=== PATIENT | female | born 1970 | race Caucasian/White ===

== ENCOUNTER 2023-03-24 16:29 | Observation (INO) | payer BC, SELFPAY ==
[2023-03-24 17:40] VITALS: BP 158/102; PULSE 56; RESP 16; TEMP 37; O2SAT 97
--- NOTE | 2023-03-24 18:55 | PC.NURSE ---
Patient arrived to floor via stretcher at 18:55.
[2023-03-24 19:14] VITALS: BP 161/104; RESP 18; TEMP 36.6; O2SAT 95; BMI 30.7
--- NOTE | 2023-03-24 19:46 | EXP.HP ---
History of Present Illness *Admission Date: 03/24/23 *Reason for visit:: Chest pain *History of present illness: 52 year old female presented to [facility] ED for c/o CP that has been occurring for 2 weeks. Pt arrived to [facility] at shift change. Pt is poor historian and is difficult to obtain PMHX due to her agitation and c/o migraine. [facility] chart reveals PMHX of HTN, HLD, Migraines, anxiety, hypothyroidism, suboxone use, and depression. Pt denies any prior hx of cardiac events. Pt reports smoking 1/2 pack daily. Her EKG at [facility] revealed T wave inversions in leads 2, 3, AVF, and 3 through V6. Her BP was systolic of 180. She was given clondine, two subling nitro tablets, and nitro paste. She has since removed the nitro paste. She was also given ASA, Brilinta, and Lovenox. Dr. Rico at [place] spoke with Dr. Young and Dr. Trejo for transfer to [facility]. I admitted the pt to the medical floor. She will receive a cardiac consult in the morning and remain on cardiac monitoring. I have ordered a cardiac workup including EKG and troponins. Pt denies any CP but reports headache. She states her chest pain is associated with being hypertensive. Her ED work up revealed an elevated AST and alk phosphate. All other lab values are WNL. Her troponins were 9 -> 7 on a scale of 0-51. Her chest xray demonstrated no cardiopulmonary process. [facility] Disclaimer: The information contained in this section may have been updated after the patient was seen, as this information can be updated by other users. Medical History Anxiety Depression Hypertension Social History (Updated 03/25/23 @ 02:35 by Gladys Pereyra RN) Smoking Status: Current every day smoker alcohol intake: never current occupational status: other Travel in the last 8 weeks: None Review of Systems *Cardiovascular Cardiovascular: Reports chest pain *Respiratory Respiratory: Reports system reviewed and no additional complaints, except as documented *Gastrointestinal Gastrointestinal: Reports system reviewed and no additional complaints, except as documented *Genitourinary Genitourinary: Reports system reviewed and no additional complaints, except as documented *Musculoskeletal Musculoskeletal: Reports system reviewed and no additional complaints, except as documented *Neurologic Neurologic: Reports system reviewed and no additional complaints, except as documented Meds Home Medications and Allergies Home Medications Medication Instructions Recorded Confirmed Type amlodipine 10 mg tablet 10 mg PO DAILY 03/24/23 03/25/23 History atorvastatin 40 mg tablet 40 mg PO HS 03/24/23 03/25/23 History buprenorphine 8 mg-naloxone 2 mg 2 tab sublingual DAILY 03/24/23 03/25/23 History sublingual tablet qplhlfffpc-msieuhpmogoar-ckxadvty 1 tab PO BIDP PRN Headache 03/24/23 03/25/23 History 50 mg-325 mg-40 mg tablet escitalopram oxalate 10 mg tablet 10 mg PO DAILY 03/24/23 03/25/23 History esomeprazole magnesium 40 mg 40 mg PO BID 03/24/23 03/25/23 History capsule,delayed release estradiol 0.5 mg tablet 0.5 mg PO DIRECTED 03/24/23 03/25/23 History fluticasone propionate 50 1 spray intranasal DAILY 03/24/23 03/25/23 History mcg/actuation nasal spray,suspension (Flonase Allergy Relief) gabapentin 800 mg tablet 800 mg PO QID neuropathic pain 03/24/23 03/25/23 History glycopyrrolate 2 mg tablet 2 mg PO DAILY 03/24/23 03/25/23 History levothyroxine 25 mcg tablet 37.5 mcg PO DAILY 03/24/23 03/25/23 History lorazepam 1 mg tablet (Ativan) 1 mg PO TIDP PRN Anxiety 03/24/23 03/25/23 History losartan 50 mg tablet 50 mg PO DAILY 03/24/23 03/25/23 History venlafaxine 75 mg capsule,extended 225 mg PO HS 03/24/23 03/25/23 History release 24 hr aspirin 81 mg tablet,delayed 81 mg PO DAILY #30 tabs 03/25/23 Rx release eszopiclone 2 mg tablet 2 mg PO HS sleep 03/25/23 03/25/23 History metoprolol succinate 100 mg 1
[2023-03-24 19:51] LABS: Basophils % 0.8 % (0.1-2.0); Eosinophils # 0.2 K/mm3 (0.0-0.4); Eosinophils % 2.7 % (0.1-12.0); Hematocrit 38.7 % (37.0-47.0); Hemoglobin 13.7 g/dL (12.2-16.2); Lymphocytes # 1.7 K/mm3 (0.7-4.5); Lymphocytes % 28.3 % (10-50); Mean Corpuscular HGB Conc 35.3 g/dL (31.8-35.4); Mean Corpuscular Hemoglobin 33.9 pg (27.0-31.2); Mean Corpuscular Volume 96.1 fl (81-99); Mean Platelet Volume 8.1 fl (7.4-10.4); Monocytes # 0.3 K/mm3 (0.1-1.0); Monocytes % 5.5 % (1.7-9.3); Neutrophils # 3.7 K/mm3 (1.8-7.8); Neutrophils % 62.8 % (37.0-80.0); Platelet Count 226 K/mm3 (142-424); Red Blood Count 4.03 M/mm3 (4.20-5.40); Red Cell Distribution Width 13.4 % (11.5-17.5); White Blood Count 5.9 K/mm3 (4.8-10.8)
[2023-03-24 20:02] LABS: Alanine Aminotransferase 79 U/L (12-78); Albumin Level 4.5 g/dl (3.5-5.0); Albumin/Globulin Ratio 1.5 (1.1-1.8); Alkaline Phosphatase 237 U/L (38-126); Aspartate Amino Transferase 100 U/L (14-36); Bilirubin,Total 0.4 mg/dl (0.2-1.3); Blood Urea Nitrogen 15 mg/dl (7-17); Calcium 9.5 mg/dl (8.4-10.2); Carbon Dioxide 32 mmol/L (22.0-30.0); Chloride 98 mmol/L (98-107); Creatinine Clearance Estimated 100 mL/min (50-200); Estimated Glomerular Filt Rate 75 ml/min (>60); GFR (African American) 90 ML/MIN (>60); Glucose 90 mg/dl (74-100); Sodium 137 mmol/L (136-145); Total Protein,Serum 7.5 g/dl (6.3-8.2)
[2023-03-24 20:12] LABS: NT Pro Brain Natriuretic Pep. 768 pg/mL (0-125)
--- NOTE | 2023-03-24 20:12 | PC.NURSE ---
Pt refusing all care, Pt yelling and cursing at staff, Pt anxious and wanting to leave.
[2023-03-24 20:15] LABS: Troponin I < 0.01 ng/ml (0.00-0.034)
[2023-03-24 20:53] VITALS: BP 192/100
--- NOTE | 2023-03-24 21:17 | ECG_ITS ---
APPROVED REPORT Exam: Resting ECG HR:63 bpm ECG Measurements Heart Rate 63 AXES NE 204 P 73 QRSd 120 QRS 30 QT 428 T -66 QTc 435 Conclusion SINUS RHYTHM LATERAL MYOCARDIAL INFARCTION , OF INDETERMINATE AGE [40+ ms Q WAVE AND/OR ST/T ABNORMALITY IN I/aVL/V5/V6] MODERATE T-WAVE ABNORMALITY, CONSIDER ANTERIOR ISCHEMIA [-0.1+ mV T-WAVE IN V3/V4] MODERATE T-WAVE ABNORMALITY, CONSIDER INFERIOR ISCHEMIA [-0.1+ mV T-WAVE IN II/aVF] ABNORMAL ECG UNCONFIRMED REPORT Electronically signed by : Gus Holbrook MD 03/25/2023 20:11:00
[2023-03-24 21:20] VITALS: PULSE 60
[2023-03-24 21:26] LABS: Thyroid Stimulating Hormone 2.49 uIU/mL (0.465-4.68)
[2023-03-24 22:51] LABS: Troponin I < 0.01 ng/ml (0.00-0.034)
[2023-03-24 23:00] VITALS: O2SAT 94
[2023-03-24 23:35] VITALS: BP 187/97; RESP 60; TEMP 36.6; O2SAT 94
[2023-03-25] VITALS (17 sets, daily range): BP systolic 146–182; BP diastolic 77–96; PULSE 50–68; RESP 16–18; TEMP 36.7–37; O2SAT 93–98; BMI 30.5
[2023-03-25 05:50] LABS: Alanine Aminotransferase 65 U/L (12-78); Albumin Level 4.1 g/dl (3.5-5.0); Albumin/Globulin Ratio 1.5 (1.1-1.8); Alkaline Phosphatase 225 U/L (38-126); Anion Gap 6.7 mEq/L (5-15); Aspartate Amino Transferase 61 U/L (14-36); Bilirubin,Total 0.4 mg/dl (0.2-1.3); Blood Urea Nitrogen 14 mg/dl (7-17); Calcium 9.4 mg/dl (8.4-10.2); Carbon Dioxide 33 mmol/L (22.0-30.0); Chloride 100 mmol/L (98-107); Creatinine Clearance Estimated 99 mL/min (50-200); Estimated Glomerular Filt Rate 75 ml/min (>60); GFR (African American) 90 ML/MIN (>60); Globulin 2.8 g/dL (1.3-3.2); Glucose 106 mg/dl (74-100); Magnesium 1.9 mg/dl (1.6-2.3); Potassium 3.7 mmoL/L (3.5-5.1); Sodium 136 mmol/L (136-145); Total Protein,Serum 6.9 g/dl (6.3-8.2)
--- NOTE | 2023-03-25 05:55 | PC.NURSE ---
pt was yelling and cursing at nursing staff and word processing machine operator. pt c/o throbbing headache and reports chest pain. pt would not sit in bed. reports she is too anxious to sit down. pt given ativan for anxiety. pt offered tylenol but refused. pt refusing to answer staff questions. daughter at bedside, pt yelling at daughter. pt given fiorcet for headache with codeine and phenergan for nausea and observed dry heaving. pt bp elevated 201/101. pt given 30 mg irbesartan. pt able to rest. more calmer and resting. pt did wake up requesting night time medicines at 0300. went over home med list and updated change in meds and notified word processing machine operator. pt has been cp free. pt has been npo after mn pending cardiology consult
--- NOTE | 2023-03-25 06:00 | XR_ITS ---
PROCEDURE INFORMATION: Exam: XR Chest Exam date and time: 03/25/2023 5:24 AM Age: 52 years old Clinical indication: Sternal or substernal pain; Additional info: Cp TECHNIQUE: Imaging protocol: Radiologic exam of the chest. Views: 1 view. COMPARISON: No relevant prior studies available. FINDINGS: Tubes, catheters and devices: Leads overlying chest. Lungs: No consolidation. Pleural spaces: No significant pleural effusion. No pneumothorax. Heart/Mediastinum: Mild cardiomegaly. Bones/joints: No displaced fracture. Soft tissues: Unremarkable. IMPRESSION: Mild cardiomegaly.
[2023-03-25 06:09] LABS: Basophils % 0.4 % (0.1-2.0); Eosinophils # 0.1 K/mm3 (0.0-0.4); Eosinophils % 1.8 % (0.1-12.0); Hematocrit 39.8 % (37.0-47.0); Hemoglobin 13.6 g/dL (12.2-16.2); Lymphocytes # 1.7 K/mm3 (0.7-4.5); Lymphocytes % 29.4 % (10-50); Mean Corpuscular Hemoglobin 33.7 pg (27.0-31.2); Mean Corpuscular Volume 98.9 fl (81-99); Monocytes # 0.3 K/mm3 (0.1-1.0); Monocytes % 6.1 % (1.7-9.3); Neutrophils # 3.5 K/mm3 (1.8-7.8); Neutrophils % 62.2 % (37.0-80.0); Platelet Count 193 K/mm3 (142-424); Red Blood Count 4.03 M/mm3 (4.20-5.40); Red Cell Distribution Width 13.5 % (11.5-17.5); White Blood Count 5.7 K/mm3 (4.8-10.8)
--- NOTE | 2023-03-25 07:57 | HMH.PHAINT1 ---
Pharmacy Intervention Comments: verified home med list using list from outpt pharmacy and pt interview
--- NOTE | 2023-03-25 08:34 | CA_ITS ---
APPROVED REPORT EXAM: Comprehensive 2D, Doppler, and color-flow Echocardiogram Clinical Product Specialist: Tori Gaines, DAREN, RVS Ht: 5 ft 2 in Wt: 172lbs BSA: 1.79 BP: 161/104 mmHg Indications: Angina, Dyspnea, HTN, dizziness, HLD, Smoker 2D Dimensions IVSd 0.95 cm LVEF (Visual) 43.70 % PWd 0.99 cm LVDd 4.43 cm LVDs 3.48 cm Aortic Root 2.83 cm Left Atrium 4.74 cm LVOT 2.02 cm (M/F) 1.5-2.5 M-Mode Dimensions LA Diam 3.79 cm (1.9-4.0) Ao Diam 3.43 cm (2.0-3.7) EPSs 0.89 cm TAPSE 2.48 (<1.7) LV Diastology E Decel Time 277.00 (160-240 msec) E/A Ratio 0.81 MED E' 5.20 (< 7 cm/sec) MED A' 8.90 cm/s E'/MED E' Ratio 12.79 (>14) LAT E' 5.40 (<10 cm/sec) LAT A' 8.40 cm/s E/LAT E' Ratio 12.31 (>14) Aortic Valve LVOT Max 120.00 (70-110 cm/s) LVOT VTI 25.26 cm AoV Peak Chalo. 127.00 (50-130 cm/s) AO Peak GR. 6.40 mmHg AO Mean GR. 3.30 (<5 mmHg) AO VTI 26.11 (18-25 cm) JULISA (VTI) 3.10 (2.5-4.5 cm2) Mitral Valve MV A Velocity 82.00 (40-130 cm/s) E/A Ratio 0.81 MV Decel. Time 277.00 (160-240 ms) MV Mean Gr. 0.90 (<2mmHg) Tricuspid Valve TR P. Velocity 182.00 cm/s Left Ventricle The left ventricle is normal size. The left ventricular systolic function is normal. The left ventricular ejection fraction is within the normal range. There is normal left ventricular wall thickness. There is normal LV segmental wall motion. Diastolic function is indeterminate. LVEF is 55%. Right Ventricle The right ventricle is normal size. The right ventricular systolic function is normal. Atria The left atrium size is normal. The right atrium size is normal. There is no Doppler evidence of interatrial shunt. Aortic Valve The aortic valve is normal in structure. The aortic valve is trileaflet. There is no aortic valvular stenosis. No aortic regurgitation is present. Mitral Valve The mitral valve is normal in structure. Mild mitral regurgitation. Tricuspid Valve The tricuspid valve leaflets are thin and pliable. Trace tricuspid regurgitation. RVSP is normal. Pulmonic Valve The pulmonary valve is normal in structure. Trace pulmonic regurgitation. Great Vessels The aortic root is normal in size. The ascending aorta is normal in size. IVC is normal in size and collapses >50% with inspiration. Pericardium There is no pericardial effusion. Other Information Study Quality: Fair Conclusion Normal biventricular systolic function. No regional wall motion abnormalities. No significant valvular stenosis or regurgitation. Electronically signed by : Sasha Ellis MD 03/25/2023 13:39:43
--- NOTE | 2023-03-25 10:03 | EXP.CARD.CON ---
History of Present Illness History of Present Illness Consult date: 03/25/23 Requesting physician: Alcides Young Consult reason: chest pain Chief complaint: chest pain History of present illness: 52-year-old white female with past medical history of migraines, anxiety, Suboxone use, hypertension, hyperlipidemia and half pack per day smoker greater than 20 years presents to [facility] from [facility] as a transfer for unstable angina. Patient reports a 2-week history of progressively worsening midsternal chest pressure radiating into back and hypertension. Patient reports she has been compliant with her blood pressure medications amlodipine, losartan anf metoprolol and systolic blood pressures remains in the 180s. Chest pain got worse yesterday prompting her to go to the ER. EKG at [facility] revealed T wave inversion. [facility] troponins were 9 and 7 on a scale of 0-51. Patient was given clonidine and 2 sublingual nitros and transferred to [facility] for cardiology evaluation. Labs as follow: WBC 5.7, hemoglobin 13.6, sodium 136, potassium 3.7, creatinine 0.8, troponin 0.01x2. Chest x-ray shows cardiomegaly without other acute cardiopulmonary process noted. This morning patient reports she is still having chest pressure and blood pressure remains elevated in the 150s. [facility] Disclaimer: The information contained in this section may have been updated after the patient was seen, as this information can be updated by other users. Medical History Anxiety Depression Hypertension Social History (Updated 03/25/23 @ 02:35 by Gladys Pereyra RN) Smoking Status: Current every day smoker alcohol intake: never current occupational status: other Travel in the last 8 weeks: None Review of Systems Review of Systems Review of systems:: pertinent systems reviewed and negative unless documented below *Cardiovascular Cardiovascular: Reports chest pain and Reports dyspnea *Respiratory Respiratory: Reports dyspnea *Neurologic Neurologic: Reports system reviewed and no additional complaints, except as documented Exam Data for Last 24 hours Vital signs and Labs for Last 24 Hours: Temp Pulse Resp BP Pulse Ox O2 Del Method 98.0 F 62 18 182/90 H 98 Room Air 03/25/23 07:48 03/25/23 07:48 03/25/23 07:48 03/25/23 07:48 03/25/23 08:00 03/25/23 08:17 Laboratory Results - last 24 hr 03/24/23 19:40: WBC 5.9, RBC 4.03 L, Hgb 13.7, Hct 38.7, MCV 96.1, MCH 33.9 H, MCHC 35.3, RDW 13.4, Plt Count 226, MPV 8.1, Neut % (Auto) 62.8, Lymph % (Auto) 28.3, [place] % (Auto) 5.5, Eos % (Auto) 2.7, Baso % (Auto) 0.8, Neut # (Auto) 3.7, Lymph # (Auto) 1.7, [place] # (Auto) 0.3, Eos # (Auto) 0.2, Baso # (Auto) 0.0, Sodium 137, Potassium 4.0, Chloride 98, Carbon Dioxide 32 H, Anion Gap 11.0, BUN 15, Creatinine 0.80, Estimated Creat Clear 100, Estimated GFR 75, Est GFR ( Amer) 90, Glucose 90, Calcium 9.5, Total Bilirubin 0.4, AST 100 H, ALT 79 H, Alkaline Phosphatase 237 H, Troponin I < 0.01, NT-Pro-B Natriuret Pep 768 H, Total Protein 7.5, Albumin 4.5, Globulin 3.0, Albumin/Globulin Ratio 1.5, TSH 2.49 03/24/23 22:20: Troponin I < 0.01 03/25/23 05:21: WBC 5.7, RBC 4.03 L, Hgb 13.6, Hct 39.8, MCV 98.9, MCH 33.7 H, MCHC 34.0, RDW 13.5, Plt Count 193, MPV 8.0, Neut % (Auto) 62.2, Lymph % (Auto) 29.4, [place] % (Auto) 6.1, Eos % (Auto) 1.8, Baso % (Auto) 0.4, Neut # (Auto) 3.5, Lymph # (Auto) 1.7, [place] # (Auto) 0.3, Eos # (Auto) 0.1, Baso # (Auto) 0.0, Sodium 136, Potassium 3.7, Chloride 100, Carbon Dioxide 33 H, Anion Gap 6.7, BUN 14, Creatinine 0.80, Estimated Creat Clear 99, Estimated GFR 75, Est GFR ( Amer) 90, Glucose 106 H, Calcium 9.4, Magnesium 1.9, Total Bilirubin 0.4, AST 61 H D, ALT 65, Alkaline Phosphatase 225 H, Total Protein 6.9, Albumin 4.1, Globulin 2.8, Albumin/Globulin Ratio 1.5 I & O for Last 24 hours: Intake & Ou
--- NOTE | 2023-03-25 10:36 | IR_ITS ---
APPROVED REPORT Patient Location: Inpatient Employment Instructional Associate: DANIELLE Muhammad RT (R) PROCEDURES Left heart catheterization Left ventriculogram Selective coronary angiogram INDICATION Stable angina Informed consent was obtained prior to the procedure. COMPLICATIONS None Estimated Blood Loss: Less than 10 mls TECHNIQUE One percent lidocaine used to anesthetize the right anterior aspect of the wrist. The right radial artery was accessed via the Seldinger technique. A 6 Omani sheath was placed in the right radial artery. 2.5 mg of Verapamil, 800 mcg of nitroglycerin, 1mg Lidocaine and 5000 U Heparin were given through the arterial sheath. The papa catheter was also used to perform left heart catheterization, left ventriculogram and selective coronary angiogram. At the end of the procedure the sheath was removed good hemostasis was achieved using Traclet band, patient was transferred to the postop holding area in stable condition. ANGIOGRAPHIC RESULTS The left main artery Normal The left anterior descending artery Normal The circumflex artery Normal The right coronary artery Dominant normal The [place]UMONT ventriculogram reveals Hyperdynamic at 75% with apical hocm The left ventricular end-diastolic pressure 15 mmHg IMPRESSION Normal coronary arteries Hyperdynamic ejection fraction with evidence of apical hocm Borderline LVEDP PLAN 1. Echocardiogram 2. Treatment of hypertension which is the likely etiology for angina 3. Avoidance of tobacco products 4. Risk factor modification Electronically signed by : Maximus Trejo MD 03/25/2023 14:55:37
--- NOTE | 2023-03-25 12:26 | EXP.PN ---
Subjective *Date: 03/25/23 *Time: 12:26 Interval history: Patient seen and evaluated at the bedside. Patient denied chest pain nausea vomiting diarrhea constipation dysuria fevers chills shortness of breath. Exam Data for Last 24 hours Vital signs and Labs for Last 24 Hours: Temp Pulse Resp BP Pulse Ox O2 Del Method 98.0 F 60 18 155/82 H 98 Room Air 03/25/23 07:48 03/25/23 08:00 03/25/23 07:48 03/25/23 10:10 03/25/23 08:00 03/25/23 10:22 Laboratory Results - last 24 hr 03/24/23 19:40: WBC 5.9, RBC 4.03 L, Hgb 13.7, Hct 38.7, MCV 96.1, MCH 33.9 H, MCHC 35.3, RDW 13.4, Plt Count 226, MPV 8.1, Neut % (Auto) 62.8, Lymph % (Auto) 28.3, Real % (Auto) 5.5, Eos % (Auto) 2.7, Baso % (Auto) 0.8, Neut # (Auto) 3.7, Lymph # (Auto) 1.7, Real # (Auto) 0.3, Eos # (Auto) 0.2, Baso # (Auto) 0.0, Sodium 137, Potassium 4.0, Chloride 98, Carbon Dioxide 32 H, Anion Gap 11.0, BUN 15, Creatinine 0.80, Estimated Creat Clear 100, Estimated GFR 75, Est GFR ( Amer) 90, Glucose 90, Calcium 9.5, Total Bilirubin 0.4, AST 100 H, ALT 79 H, Alkaline Phosphatase 237 H, Troponin I < 0.01, NT-Pro-B Natriuret Pep 768 H, Total Protein 7.5, Albumin 4.5, Globulin 3.0, Albumin/Globulin Ratio 1.5, TSH 2.49 03/24/23 22:20: Troponin I < 0.01 03/25/23 05:21: WBC 5.7, RBC 4.03 L, Hgb 13.6, Hct 39.8, MCV 98.9, MCH 33.7 H, MCHC 34.0, RDW 13.5, Plt Count 193, MPV 8.0, Neut % (Auto) 62.2, Lymph % (Auto) 29.4, Real % (Auto) 6.1, Eos % (Auto) 1.8, Baso % (Auto) 0.4, Neut # (Auto) 3.5, Lymph # (Auto) 1.7, Real # (Auto) 0.3, Eos # (Auto) 0.1, Baso # (Auto) 0.0, Sodium 136, Potassium 3.7, Chloride 100, Carbon Dioxide 33 H, Anion Gap 6.7, BUN 14, Creatinine 0.80, Estimated Creat Clear 99, Estimated GFR 75, Est GFR ( Amer) 90, Glucose 106 H, Calcium 9.4, Magnesium 1.9, Total Bilirubin 0.4, AST 61 H D, ALT 65, Alkaline Phosphatase 225 H, Total Protein 6.9, Albumin 4.1, Globulin 2.8, Albumin/Globulin Ratio 1.5 I & O for Last 24 hours: Intake & Output 03/22/23 03/23/23 03/24/23 03/25/23 23:59 23:59 23:59 23:59 Intake Total 120 / 120 0 / 0 Output Total 0 / 0 0 / 0 Balance 120 / 120 0 / 0 Weight 78.557 kg 78.2 kg Constitutional Constitutional: no acute distress *Routine HEENT Exam Head: Present normocephalic Eye: Present EOMI and PERRL ENT: Present mucous membranes moist *Routine Neck Exam Neck: Present supple; Absent lymphadenopathy *Routine Respiratory Exam Respiratory: Present CTA bilaterally *Routine Cardiovascular Exam Cardiovascular: Present RRR *Routine Abdominal Exam Abdominal: Present soft and normoactive bowel sounds; Absent tenderness *Routine Extremities Exam Extremities: Absent cyanosis, clubbing or edema *Routine Skin Exam Skin: Present warm; Absent rash *Routine Neurological Exam Neurological: Present alert and oriented X3 Assessment and Plan *Assessment and plan (1) Unstable angina: Status: Acute Category: Medical Code(s): I20.0 - Unstable angina (2) HTN (hypertension): Status: Acute Category: Medical Code(s): I10 - Essential (primary) hypertension (3) HLD (hyperlipidemia): Status: Acute Category: Medical Code(s): E78.5 - Hyperlipidemia, unspecified (4) Tobacco abuse: Status: Acute Category: Medical Code(s): Z72.0 - Tobacco use Plan Patient is a 52-year-old female who presented to hospital due to chest pain. Patient has past medical history of hypertension hyperlipidemia migraine hypothyroidism, substance abuse, tobacco abuse. Assessment Unstable angina Hypertension Hyperlipidemia Anxiety Depression Hypothyroidism Substance abuse Tobacco abuse Plan Cardiology has been consulted, plan for cardiac cath today Patient is currently n.p.o. Follow-up on cardiac echocardiogram Troponin has been stable Resume home medications Stable for discharge after cardiac cath if okay with cardiology At time of my evaluation patient denies any acti
--- NOTE | 2023-03-25 15:13 | US_ITS ---
FINAL REPORT CLINICAL HISTORY: htn COMPARISON: None FINDINGS: RENAL ULTRASOUND Ultrasound images of the kidneys were obtained. Limited images of the liver parenchyma demonstrates normal echogenicity. The right kidney measures 8.5 cm in length. It is normal echogenicity. There is no hydronephrosis. The left kidney is suboptimally visualized, but measures 8.6 cm in length. It is normal echogenicity. There is no hydronephrosis. IMPRESSION: Left kidney suboptimally visualized, but normal renal ultrasound otherwise. Reviewed, Interpreted and Dictated by Bean Ortiz MD Transcribed by Chhaya Rowe Authenticated and [facility]
--- NOTE | 2023-03-25 17:44 | PC.NURSE ---
. aware pt's bp of 158/102 P:56. Mark.
--- NOTE | 2023-03-25 18:25 | PC.NURSE ---
Right wrist dressing placed with nonadhesive and tegaderm.
--- NOTE | 2023-03-26 15:56 | CARE MANAGER ---
Called and spoke with patient to discuss recent discharge. Patient stated that she had some issues while here at this hospital, those have been relayed to Noy Camarena and Dr. Flores.
--- NOTE | 2023-03-30 19:13 | EXP.DC.SUM ---
General Admission date:: 03/24/23 Discharge date: 03/25/23 HPI HPI HPI: 52 year old female presented to [facility] ED for c/o CP that has been occurring for 2 weeks. Pt arrived to [facility] at shift change. Pt is poor historian and is difficult to obtain PMHX due to her agitation and c/o migraine. [facility] chart reveals PMHX of HTN, HLD, Migraines, anxiety, hypothyroidism, suboxone use, and depression. Pt denies any prior hx of cardiac events. Pt reports smoking 1/2 pack daily. Her EKG at [facility] revealed T wave inversions in leads 2, 3, AVF, and 3 through V6. Her BP was systolic of 180. She was given clondine, two subling nitro tablets, and nitro paste. She has since removed the nitro paste. She was also given ASA, Brilinta, and Lovenox. Dr. Rico at [place] spoke with Dr. Young and Dr. Trejo for transfer to [facility]. I admitted the pt to the medical floor. She will receive a cardiac consult in the morning and remain on cardiac monitoring. I have ordered a cardiac workup including EKG and troponins. Pt denies any CP but reports headache. She states her chest pain is associated with being hypertensive. Her ED work up revealed an elevated AST and alk phosphate. All other lab values are WNL. Her troponins were 9 -> 7 on a scale of 0-51. Her chest xray demonstrated no cardiopulmonary process. Hospital Course Hospital Course Hospital Course: see same date progress note Patient was seen and evaluated at the bedside on the day of discharge. Patient is stable for discharge. Patient wishes to be discharged. All patient questions were answered and patient was given time to ask questions. Patient was discharged in stable condition. Exam Data for Last 24 hours Vital signs and Labs for Last 24 Hours: Temp Pulse Resp BP Pulse Ox O2 Del Method 98.6 F 53 L 17 164/91 H 97 Room Air 03/25/23 18:10 03/25/23 18:10 03/25/23 18:10 03/25/23 18:10 03/25/23 18:10 03/25/23 18:10 DS: Diagnosis Discharge Diagnosis (1) Unstable angina: Status: Inactive Code(s): I20.0 - Unstable angina (2) HTN (hypertension): Status: Inactive Code(s): I10 - Essential (primary) hypertension (3) HLD (hyperlipidemia): Status: Inactive Code(s): E78.5 - Hyperlipidemia, unspecified (4) Migraine: Status: Inactive Code(s): G43.909 - Migraine, unspecified, not intractable, without status migrainosus (5) Anxiety: Status: Inactive Code(s): F41.9 - Anxiety disorder, unspecified (6) Depression: Status: Inactive Code(s): F32.A - Depression, unspecified (7) Hypothyroid: Status: Inactive Code(s): E03.9 - Hypothyroidism, unspecified (8) Substance abuse: Status: Inactive Code(s): F19.10 - Other psychoactive substance abuse, uncomplicated (9) Tobacco abuse: Status: Inactive Code(s): Z72.0 - Tobacco use Meds Home Medications and Allergies Home Medications Medication Instructions Recorded Confirmed Type amlodipine 10 mg tablet 10 mg PO DAILY 03/24/23 03/25/23 History atorvastatin 40 mg tablet 40 mg PO HS 03/24/23 03/25/23 History buprenorphine 8 mg-naloxone 2 mg 2 tab sublingual DAILY 03/24/23 03/25/23 History sublingual tablet sinqotbbqb-sxuwupsrkcktc-jbcbpicb 1 tab PO BIDP PRN Headache 03/24/23 03/25/23 History 50 mg-325 mg-40 mg tablet escitalopram oxalate 10 mg tablet 10 mg PO DAILY 03/24/23 03/25/23 History esomeprazole magnesium 40 mg 40 mg PO BID 03/24/23 03/25/23 History capsule,delayed release estradiol 0.5 mg tablet 0.5 mg PO DIRECTED 03/24/23 03/25/23 History fluticasone propionate 50 1 spray intranasal DAILY 03/24/23 03/25/23 History mcg/actuation nasal spray,suspension (Flonase Allergy Relief) gabapentin 800 mg tablet 800 mg PO QID neuropathic pain 03/24/23 03/25/23 History glycopyrrolate 2 mg tablet 2 mg PO DAILY 03/24/23 03/25/23 History levothyroxine 25 mcg tablet 37.5 mcg PO DAILY 03/24
== END 2023-03-25 20:05 | disposition home or self-care (01) ==
PROVIDERS: Internal Medicine; Nurse Practitioner Critical Care Medicine; Admitting Provider Internal Medicine Adolescent Medicine; Visit Provider Internal Medicine Adolescent Medicine
DX: I20.89 Other forms of angina pectoris (principal); I10 Essential (primary) hypertension; E78.5 Hyperlipidemia, unspecified; G43.909 Migraine, unspecified, not intractable, without status migrainosus; E03.9 Hypothyroidism, unspecified; F17.210 Nicotine dependence, cigarettes, uncomplicated; Z79.891 Long term (current) use of opiate analgesic; Z79.899 Other long term (current) drug therapy
CPT/HCPCS: 36415; 71045; 76770; 80053; 83735; 83880; 84443; 84484; 85025; 93005; 93306; 93458; 99152; 99251; C1725; C1769; G0378; J1644; Q9967